=== PATIENT | female | born 1955 | race Caucasian/White ===

== ENCOUNTER → 2016-10-03 | Outpatient (CLI) | payer OTHER ==
[~2016-10-03] MED LIST: CA C1TAB26 PO; ESTR1TAB24 PO; MULT-608 PO; OMEG1CAP51 PO
--- OUTSIDE RECORDS SUMMARY | 2016-10-03 07:28 | XMS REPORT | Continuity of Care Document ---
Author Author [facility] Organization [facility] Address Unknown Phone Unavailable Allergies Active Description Code Type Severity Reaction Onset Reported/Identified Relationship to Patient Clinical Status Yes Penicillins [id number] Drug Allergy Unknown N/A 07/20/2010 Medications Problems Date Dx Coded Attending Type Code Diagnosis Diagnosed By 08/16/2014 Ot 793.89 08/16/2014 Ot V76.12 08/16/2014 Ot 610.0 08/16/2014 NEIDA GONZALES, CHRISTIANO Maradiaga Ot 719.42 08/16/2014 NEIDA GONZALES, CHRISTIANO R Ot V15.88 08/17/2014 Ot 793.89 08/17/2014 Ot V76.12 08/17/2014 Ot 610.0 08/17/2014 NEIDA GONZALES, CHRISTIANO R Ot 719.42 08/17/2014 NEIDA GONZALES, CHRISTIANO R Ot V15.88 08/17/2014 GERI CHACON DO Ot V76.12 09/15/2014 GERI CHACON DO Ot V76.12 01/21/2015 NEIDA GONZALES, CHRISTIANO R Ot 719.00 02/10/2015 RICHARD QUEZADA DC Ot 729.5 03/07/2015 RICHARD QUEZADA DC Ot 729.5 03/07/2015 ONEAL GONZALES, EFRAIN Batres Ot 375.15 03/07/2015 ONEAL GONZALES, EFRAIN Batres Ot 714.9 03/09/2015 ONEAL GONZALES, EFRAIN Batres Ot 375.15 03/09/2015 ONEAL GONZALES, EFRAIN Batres Ot 714.9 07/13/2016 RICHARD QUEZADA DC Ot 729.5 PAIN IN LIMB 07/13/2016 ONEAL GONZALES, EFRAIN Batres Ot 375.15 TEAR FILM INSUFFIC NOS 07/13/2016 ONEAL GONZALES, EFRAIN Batres Ot 714.9 INFLAMM POLYARTHROP NOS 07/16/2016 NEIDA GONZALES, CHRISTIANO Maradiaga Ot E78.00 PURE HYPERCHOLESTEROLEMIA, UNSPECIFIED 07/25/2016 CHRISTIANO CARRASQUILLO MD Ot E78.00 PURE HYPERCHOLESTEROLEMIA, UNSPECIFIED Procedures Results Test Result Range Lipid 1996 panel - 07/13/16 09:51 Serum or plasma triglyceride measurement (mass/volume) 208 mg/dL <150 Serum or plasma cholesterol measurement (mass/volume) 284 mg /dL < 200 Serum or plasma cholesterol in HDL measurement (mass/volume) 65 mg/dL 40-60 Cholesterol in LDL [mass/volume] in serum or plasma by direct assay 176 mg/dL 1-129 Serum or plasma cholesterol in VLDL measurement (mass/volume) 42 mg/dL 5-40 Encounters ACCT No. Visit Date/Time Discharge Status Pt. Type Provider Facility Loc./Unit Complaint [id number] 02/22/2015 08:52:00 2014 23:59:59 CLS Outpatient EFRAIN NO MD [facility] LAB DRY EYES [id number] 01/24/2015 09:49:00 2014 23:59:59 CLS Outpatient RICHARD QUEZADA DC [facility] RAD HAND PAIN [id number] 12/13/2014 09:52:00 2014 23:59:59 CLS Outpatient CHRISTIANO CARRASQUILLO MD [facility] LAB [id number] 08/16/2014 10:12:00 2014 23:59:59 CLS Outpatient GERI CHACON DO [facility] RAD [id number] 10/05/2013 13:44:00 2013 23:59:59 CLS Outpatient CHRISTIANO CARRASQUILLO MD [facility] RAD [id number] 09/25/2013 10:22:00 2013 23:59:59 CLS Outpatient [id number] 07/13/2016 09:40:00 ACT Outpatient CHRISTIANO CARRASQUILLO MD [facility] LAB ELEVATED CHOLESTEROL [id number] 10/03/2012 08:45:00 Document Registration [id number] 09/16/2012 10:47:00 Document Registration
--- NOTE | 2016-10-04 20:26 | Diagnostic Imaging Report ---
Bilateral screening mammogram The current study was also evaluated with a Computer Aided Detection (CAD) system. Indication: Screening. No current complaints stated on the questionnaire. COMPARISON: 08/16/2014. FINDINGS: The breasts are composed of heterogeneously dense parenchyma which may decrease mammographic sensitivity. There is no mass, architectural distortion or suspicious cluster of calcification. Allowing for technique and positional differences, no suspicious change is seen. IMPRESSION: No significant change. ACR BI-RADS Category 2: Benign findings. Result letter will be mailed to the patient. Note: At least 10% of breast cancer is not imaged by mammography. Dictated by: Dictated on workstation # [id number]
== END ==
LOC: RAD 07:25
PROVIDERS: ATTEND Obstetrics & Gynecology
DX: Z12.31 Encounter for screening mammogram for malignant neoplasm of breast (principal)
CPT/HCPCS: 77067

== ENCOUNTER 2018-09-12 05:46 | Outpatient (CLI) | payer OTHER ==
[~2018-09-12] VITALS: Ht 158.8 cm; Wt 71.2 kg
[2018-09-12] MEDS ORDERED: MULT1CAP27 PO (13:49)
[2018-09-12] MEDS ORDERED: MAGN500C15 PO (13:49)
[2018-09-12] MEDS ORDERED: TRIA1CAP4 PO (13:49)
[2018-09-12] MEDS ORDERED: LEVO50TA6 PO (13:49)
[2018-09-12] MEDS ORDERED: CHOL10007 PO (13:49)
[2018-09-12] MEDS ORDERED: OMEG1CAP58 PO (13:49)
[2018-09-12] MEDS ORDERED: LIOT5TAB3 PO (13:49)
[2018-09-12] MEDS ORDERED: VIT1CAPS9 PO (13:49)
[2018-09-12] MEDS ORDERED: MELO7.5T46 PO (13:49)
[2018-09-12] MEDS ORDERED: LEVO5TAB28 PO (13:49)
[2018-09-12] MEDS ORDERED: ESTR0.5T PO (13:49)
[2018-09-12] MEDS ORDERED: METF-397 PO (13:49)
[2018-09-12] MEDS ORDERED: VITA0.4T2 PO (13:49)
== END 2018-09-12 13:58 | disposition home or self-care (01) ==
LOC: PREOP 05:46
PROVIDERS: ATTEND Specialist
DX: Z01.818 Encounter for other preprocedural examination (principal)

== ENCOUNTER 2018-09-19 09:00 | Day surgery (SDC) | payer OTHER ==
[~2018-09-19] VITALS: Ht 158.8 cm; Wt 71.2 kg
[~2018-09-19 09:00] MED LIST changes: +CHOL10007 PO; +ESTR0.5T PO; +LEVO50TA6 PO; +LEVO5TAB28 PO; +LIOT5TAB3 PO; +MAGN500C15 PO; +MELO7.5T46 PO; +METF-397 PO; +MULT1CAP27 PO; +OMEG1CAP58 PO; +TRIA1CAP4 PO; +VIT1CAPS9 PO; +VITA0.4T2 PO
[2018-09-19 09:10] VITALS: BP 141/94
[2018-09-19] MEDS ORDERED: LIDOCAINE PF 1% 2 ML AMP IR PRN (09:15)
[2018-09-19] MEDS ORDERED: TIMOLOL MALEATE 0.5% 5 ML (TIMOPTIC) BTL OU PRN (09:15)
[2018-09-19] MEDS ORDERED: MOXIFLOXACIN OPHTH SOLN 5 MG/ML 0.3 ML SYRINGE OP ONE (09:15)
[2018-09-19] MEDS ORDERED: POVIDONE (BETADINE) OPHTH SOLN 5% 30 ML OP ONE (09:15)
[2018-09-19] MEDS: TETRACAINE 0.5% OPHTH SOLN 4 ML BTL (SINGLE DOSE ONLY) OU PRN ×4 (09:29→09:38)
[2018-09-19] MEDS ORDERED: MIDAZOLAM 2 MG/2 ML (VERSED) VIAL ONE (09:30)
[2018-09-19] MEDS: CYCLOPENTOLATE 1% (CYCLOGYL) 2 ML DROPS OP SCH ×3 (09:32→09:38)
[2018-09-19] MEDS: PHENYLEPHRINE 10% OPHTH (NEO-SYN) 5 ML BTL OU SCH ×3 (09:32→09:38)
--- NOTE | 2018-09-19 09:50 | Ophthalmologist Pre-Op Note ---
Pre-Operative Progress Note H&P Reviewed The H&P was reviewed, patient examined and no changes noted. Date H&P Reviewed: Sep 19, 2018 Time H&P Reviewed: 09:50 Pre-Op Dx Cataract, Right Eye NIDIA VALDEZ MD Sep 19, 2018 09:50
--- NOTE | 2018-09-19 10:14 | Ophthalmology Operative Report ---
Cataract removal/placement IOL PREOPERATIVE DIAGNOSIS: Cataract Right Eye POSTOPERATIVE DIAGNOSIS: Cataract Right Eye PROCEDURE: Cataract removal and placement of posterior chamber implant, right eye SURGEON: Rikki Valdez ANESTHESIA: Topical with sedation COMPLICATIONS: None ESTIMATED BLOOD LOSS: Minimal DESCRIPTION OF PROCEDURE: After proper informed consent was obtained, the patient, a 62 female, was taken to the Operating Room and the right eye was anesthetized with tetracaine. The right eye was then prepped and draped in the usual manner. A wire lid speculum was placed. A paracentesis was made at the left hand position. Preservative free lidocaine was injected into the anterior chamber followed by viscoelastic. A clear corneal incision was made in the temporal position. A capsulorrhexis was preformed and the central nuclear and cortical material were removed. The posterior capsule was polished and Bolivar 22.0 AU00T0 IOL was placed into the capsular bag. The residual viscoelastic was aspirated and balanced saline solution was injected into the anterior chamber. Moxifloxacin was injected into the anterior chamber. The wound was checked and found to be water tight. The patient tolerated the procedure well without complications. RIKKI VALDEZ MD Sep 19, 2018 10:14
[2018-09-19 10:30] VITALS: BP 132/76
--- OUTSIDE RECORDS SUMMARY | 2018-09-19 10:35 | XMS REPORT | Continuity of Care Document ---
Author Author [facility] Organization [facility] Address Unknown Phone Unavailable Allergies Active Description Code Type Severity Reaction Onset Reported/Identified Relationship to Patient Clinical Status Yes Penicillins [id number] Drug Allergy Unknown N/A 07/20/2010 Yes albuterol [id number] Drug Allergy Unknown N/A 09/12/2018 Yes budesonide [id number] Drug Allergy Unknown N/A 09/12/2018 Yes dapsone [id number] Drug Allergy Unknown N/A 09/12/2018 Yes formoterol [id number] Drug Allergy Unknown N/A 09/12/2018 Medications There is no data. Problems Date Dx Coded Attending Type Code Diagnosis Diagnosed By 08/16/2014 Ot 793.89 08/16/2014 Ot V76.12 08/16/2014 Ot 610.0 08/16/2014 NEIDA GONZALES, CHRISTIANO Maradiaga Ot 719.42 08/16/2014 NEIDA GONZALES, CHRISTIANO Maradiaga Ot V15.88 08/17/2014 Ot 793.89 08/17/2014 Ot V76.12 08/17/2014 Ot 610.0 08/17/2014 NEIDA GONZALES, CHRISTIANO Maradiaga Ot 719.42 08/17/2014 NEIDA GONZALES, CHRISTIANO Maradiaga Ot V15.88 08/17/2014 GERI CHACON DO Ot V76.12 09/15/2014 GERI CHACON DO Ot V76.12 01/21/2015 NEIDA GONZALES, CHRISTIANO Maradiaga Ot 719.00 02/10/2015 RICHARD QUEZADA DC Ot 729.5 03/07/2015 RICHARD QUEZADA DC Ot 729.5 03/07/2015 ONEAL GONZALES, EFRAIN Batres Ot 375.15 03/07/2015 ONEAL GONZALES, EFRAIN Batres Ot 714.9 03/09/2015 ONEAL GONZALES, EFRAIN Batres Ot 375.15 03/09/2015 ONEAL GONZALES, EFRAIN Batres Ot 714.9 07/13/2016 LONG DC, RICHARD S Ot 729.5 PAIN IN LIMB 07/13/2016 ONEAL GONZALES, EFRAIN Batres Ot 375.15 TEAR FILM INSUFFIC NOS 07/13/2016 ONEAL GONZALES, EFRAIN Batres Ot 714.9 INFLAMM POLYARTHROP NOS 07/16/2016 NEIDA GONZALES, CHRISTIANO Maradiaga Ot E78.00 PURE HYPERCHOLESTEROLEMIA, UNSPECIFIED 07/25/2016 CHRISTIANO CARRASQUILLO MD Ot E78.00 PURE HYPERCHOLESTEROLEMIA, UNSPECIFIED 10/04/2016 GERI CHACON DO Ot Z12.31 ENCNTR SCREEN MAMMOGRAM FOR MALIGNANT NE 10/04/2016 GERI CHACON DO Ot Z12.31 ENCNTR SCREEN MAMMOGRAM FOR MALIGNANT NE 10/15/2016 GERI CHACON DO Ot Z12.31 ENCNTR SCREEN MAMMOGRAM FOR MALIGNANT NE 09/12/2018 NIDIA VALDEZ MD Ot Z01.818 ENCOUNTER FOR OTHER PREPROCEDURAL EXAMIN 09/17/2018 GERI CHACON DO Ot Z12.31 ENCNTR SCREEN MAMMOGRAM FOR MALIGNANT NE Procedures There is no data. Results Test Result Range Lipid 1996 panel - 07/13/16 09:51 Serum or plasma triglyceride measurement (mass/volume) 208 mg/dL <150 Serum or plasma cholesterol measurement (mass/volume) 284 mg/dL < 200 Serum or plasma cholesterol in HDL measurement (mass/volume) 65 mg/ dL 40-60 Cholesterol in LDL [mass/volume] in serum or plasma by direct assay 176 mg/dL 1-129 Serum or plasma cholesterol in VLDL measurement (mass/volume) 42 mg/ dL 5-40 Encounters ACCT No. Visit Date/Time Discharge Status Pt. Type Provider Facility Loc./Unit Complaint [id number] 09/12/2018 05:46:00 09/12/2018 13:58:00 DIS Outpatient NIDIA VALDEZ MD [facility] PREOP RIGHT CATARACT [id number] 10/03/2016 07:25:00 10/03/2016 23:59:59 CLS Outpatient GERI CHACON DO [facility] RAD BREAST CANCER SCREENING [id number] 07/13/2016 09:40:00 07/13/2016 23:59:59 CLS Outpatient CHRISTIANO CARRASQUILLO MD [facility] LAB ELEVATED CHOLESTEROL [id number] 02/22/2015 08:52:00 02/22/2015 23:59:59 CLS Outpatient EFRAIN NO MD [facility] LAB DRY EYES [id number] 01/24/2015 09:49:00 01/24/2015 23:59:59 CLS Outpatient RICHARD QUEZADA DC [facility] RAD HAND PAIN [id number] 12/13/2014 09:52:00 12/13/2014 23:59:59 CLS Outpatient CHRISTIANO CARRASQUILLO MD [facility] LAB [id number] 08/16/2014 10:12:00 08/16/2014 23:59:59 CLS Outpatient GERI CHACON DO [facility] RAD [id number] 10/05/2013 13:44:00 10/05/2013 23:59:59 CLS Outpatient CHRISTIANO CARRASQUILLO MD [facility] RAD [id number] 09/25/2013 10:22:00 09/25/2013 23:59:59 CLS Outpatient [id number] 09/19/2018 10:30:00 NIDIA Russ MD [facility] CATARACT RIGHT EYE [id number] 10/03/2012 08:45:00 Document Registration [id number] 09/16/2012 10:47:00 Document Registration [id number] 02/22/2015 08:54:26 ACT Document Registration [id number] 09/09/2018 10:00:00 09/09/2018 23:59:59 CLS Outpatient MAURICIO MOSLEY DO [facility]
[2018-09-19] MEDS ORDERED: acetaZOLAMIDE ER 500 MG CAP (DIAMOX SEQUELS) PO ONE (11:00)
--- NOTE | 2018-09-19 13:13 | Anesthesia-General Post-Op ---
MAC Patient Condition Mental Status/LOC: Same as Preop Cardiovascular: Satisfactory Nausea/Vomiting: Absent Respiratory: Satisfactory Pain: Controlled Complications: Absent Post Op Complications Complications None Follow Up Care/Instructions Patient Instructions None needed. Anesthesiology Discharge Order Discharge Order Patient is doing well, no complaints, stable vital signs, no apparent adverse anesthesia problems. No complications reported per nursing. ALVARO CHRISTOPHER CRNA Sep 19, 2018 13:13
== END 2018-09-19 10:30 | disposition home or self-care (01) ==
LOC: SDC 09:00
PROVIDERS: ATTEND Specialist
DX: H25.11 Age-related nuclear cataract, right eye (principal); E11.36 Type 2 diabetes mellitus with diabetic cataract; E78.00 Pure hypercholesterolemia, unspecified; Z79.84 Long term (current) use of oral hypoglycemic drugs; Z79.899 Other long term (current) drug therapy
CPT/HCPCS: 82962

== ENCOUNTER 2018-10-06 06:17 | Outpatient (CLI) | payer OTHER ==
[~2018-10-06] VITALS: Ht 158.8 cm; Wt 71.2 kg
[~2018-10-06 06:17] MED LIST changes: +OCUVITE SOFTGE1 EACH PO; -VIT1CAPS9 PO
== END 2018-10-08 14:14 | disposition home or self-care (01) ==
LOC: PREOP 06:17
PROVIDERS: ATTEND Specialist
DX: Z01.818 Encounter for other preprocedural examination (principal)

== ENCOUNTER 2018-10-10 09:31 | Day surgery (SDC) | payer OTHER ==
[~2018-10-10] VITALS: Ht 158.8 cm; Wt 71.2 kg
[2018-10-10] MEDS ORDERED: POVIDONE (BETADINE) OPHTH SOLN 5% 30 ML OP ONE (09:45)
[2018-10-10] MEDS ORDERED: LIDOCAINE PF 1% 2 ML AMP IR PRN (09:45)
[2018-10-10] MEDS ORDERED: MOXIFLOXACIN OPHTH SOLN 5 MG/ML 0.3 ML SYRINGE OP ONE (09:45)
[2018-10-10] MEDS ORDERED: TIMOLOL MALEATE 0.5% 5 ML (TIMOPTIC) BTL OU PRN (09:45)
[2018-10-10] MEDS: TETRACAINE 0.5% OPHTH SOLN 4 ML BTL (SINGLE DOSE ONLY) OU PRN ×4 (09:46→10:03)
[2018-10-10 09:53] VITALS: BP 139/77
[2018-10-10] MEDS: PHENYLEPHRINE 10% OPHTH (NEO-SYN) 5 ML BTL OU SCH ×3 (09:53→10:03)
[2018-10-10] MEDS: CYCLOPENTOLATE 1% (CYCLOGYL) 2 ML DROPS OP SCH ×3 (09:53→10:03)
--- NOTE | 2018-10-10 10:14 | Ophthalmologist Pre-Op Note ---
Pre-Operative Progress Note H&P Reviewed The H&P was reviewed, patient examined and no changes noted. Date H&P Reviewed: Oct 10, 2018 Time H&P Reviewed: 10:14 Pre-Op Dx Cataract, Left Eye NIDIA VALDEZ MD Oct 10, 2018 10:14
[2018-10-10] MEDS ORDERED: MIDAZOLAM 2 MG/2 ML (VERSED) VIAL ONE (10:19)
--- NOTE | 2018-10-10 10:37 | Ophthalmology Operative Report ---
Cataract removal/placement IOL PREOPERATIVE DIAGNOSIS: Cataract Left Eye POSTOPERATIVE DIAGNOSIS: Cataract Left Eye PROCEDURE: Cataract removal and placement of posterior chamber implant, left eye SURGEON: Rikki Valdez ANESTHESIA: Topical with sedation COMPLICATIONS: None ESTIMATED BLOOD LOSS: Minimal DESCRIPTION OF PROCEDURE: After proper informed consent was obtained, the patient, a 62 female, was taken to the Operating Room and the left eye was anesthetized with tetracaine. The left eye was then prepped and draped in the usual manner. A wire lid speculum was placed. A paracentesis was made at the left hand position. Preservative free lidocaine was injected into the anterior chamber followed by viscoelastic. A clear corneal incision was made in the temporal position. A capsulorrhexis was preformed and the central nuclear and cortical material were removed. The posterior capsule was polished and an Bolivar 21.5 AU00T0 was placed into the capsular bag. The residual viscoelastic was aspirated and balanced saline solution was injected into the anterior chamber. Moxifloxacin was injected into the anterior chamber. The wound was checked and found to be water tight. The patient tolerated the procedure well without complications. RIKKI VALDEZ MD Oct 10, 2018 10:37
[2018-10-10 10:45] VITALS: BP 139/83
[2018-10-10] MEDS ORDERED: acetaZOLAMIDE ER 500 MG CAP (DIAMOX SEQUELS) PO ONE (11:00)
--- NOTE | 2018-10-10 11:00 | Anesthesia-General Post-Op ---
MAC Patient Condition Mental Status/LOC: Same as Preop Cardiovascular: Satisfactory Nausea/Vomiting: Absent Respiratory: Satisfactory Pain: Controlled Complications: Absent Post Op Complications Complications None Follow Up Care/Instructions Patient Instructions None needed. Anesthesiology Discharge Order Discharge Order Patient is doing well, no complaints, stable vital signs, no apparent adverse anesthesia problems. No complications reported per nursing. ONEIL GUAMAN CRNA Oct 10, 2018 11:00
== END 2018-10-10 10:55 | disposition home or self-care (01) ==
LOC: SDC 09:31
PROVIDERS: ATTEND Specialist
DX: H25.12 Age-related nuclear cataract, left eye (principal); E11.36 Type 2 diabetes mellitus with diabetic cataract; E78.00 Pure hypercholesterolemia, unspecified; Z79.84 Long term (current) use of oral hypoglycemic drugs; Z79.899 Other long term (current) drug therapy
CPT/HCPCS: 82962

== ENCOUNTER → 2020-12-28 | Outpatient (CLI) | payer OTHER ==
[~2020-12-28] MED LIST changes: +LIOT5TAB10 PO; -LIOT5TAB3 PO
[2020-12-28 13:58] LABS: BASOPHILS # (AUTO) 0.1 10^3/uL (0.0-0.1); BASOPHILS % (AUTO) 1 % (0-10); EOSINOPHILS # (AUTO) 0.7 10^3/uL (0.0-0.3); EOSINOPHILS % (AUTO) 11 % (0-10); HEMATOCRIT 36 % (35-52); HEMOGLOBIN 11.9 g/dL (11.5-16.0); LYMPHOCYTES # (AUTO) 1.5 10^3/uL (1.0-4.0); LYMPHOCYTES % (AUTO) 24 % (12-44); MEAN CORPUSCULAR HEMOGLOBIN 33 pg (25-34); MEAN CORPUSCULAR HGB CONC 33 g/dL (32-36); MEAN CORPUSCULAR VOLUME 98 fL (80-99); MEAN PLATELET VOLUME 10.9 fL (9.0-12.2); MONOCYTES # (AUTO) 0.5 10^3/uL (0.0-1.0); MONOCYTES % (AUTO) 7 % (0-12); NEUTROPHILS # (AUTO) 3.6 10^3/uL (1.8-7.8); NEUTROPHILS % (AUTO) 57 % (42-75); PLATELET COUNT 272 10^3/uL (130-400); WHITE BLOOD COUNT 6.4 10^3/uL (4.3-11.0)
[2020-12-28 14:24] LABS: ALANINE AMINOTRANSFERASE 64 U/L (0-55); ALKALINE PHOSPHATASE 84 U/L (40-136); BILIRUBIN,TOTAL 0.4 MG/DL (0.1-1.0); BUN/CREATININE RATIO 13; CARBON DIOXIDE 28 MMOL/L (21-32); CHLORIDE 104 MMOL/L (98-107); CREATININE SERUM 0.83 MG/DL (0.60-1.30); GFR ESTIMATED > 60; GLUCOSE 87 MG/DL (70-105); POTASSIUM 3.8 MMOL/L (3.6-5.0); SODIUM 139 MMOL/L (135-145); TOTAL PROTEIN 7.1 GM/DL (6.4-8.2)
--- NOTE | 2020-12-28 15:13 | Diagnostic Imaging Report ---
INDICATION: Bilateral axillary adenopathy. FINDINGS: Sonographic interrogation of the right and left axilla was performed. No masses or enlarged lymph nodes in the right axilla are identified. The left axilla demonstrates a 2.4 x 0.4 x 1.2 cm lymph node which demonstrates a fatty hilum. This is in the region of the axillary tail. No other masses are seen. IMPRESSION: There is a mildly prominent lymph node in the left axillary tail. The study is otherwise unremarkable. Dictated by: Dictated on workstation # [id number]
--- NOTE | 2020-12-28 15:20 | Diagnostic Imaging Report ---
PROCEDURE: US Abdomen, limited. TECHNIQUE: Multiple Real-time grayscale images were obtained over the abdomen in various projections. INDICATION: Right upper quadrant pain. FINDINGS: The liver is normal in size at approximately 15 cm. No discrete liver mass is detected. The portal vein is patent and shows normal direction of flow. The gallbladder is without stones or sludge. No wall thickening or biliary ductal dilatation is seen. The pancreas is unremarkable. The aorta is nonaneurysmal. The IVC is patent. The right kidney is without calculus or hydronephrosis. There is no ascites. IMPRESSION: Unremarkable right upper quadrant ultrasound. Dictated by: Dictated on workstation # [id number]
== END ==
LOC: RAD 13:42
PROVIDERS: ATTEND Nurse Practitioner Family
DX: R59.0 Localized enlarged lymph nodes (principal); R10.11 Right upper quadrant pain
CPT/HCPCS: 36415; 76642; 76705; 80053; 85025; 86141

== ENCOUNTER → 2021-01-06 | Outpatient (CLI) | payer OTHER ==
--- NOTE | 2021-01-10 10:37 | Diagnostic Imaging Report ---
Digital mammogram INDICATION: Bilateral screening This study was compared to the prior exams of 10/03/2016 and 08/16/2014. At this time there are no current complaints. The current study was also evaluated with a Computer Aided Detection (CAD) system. FINDINGS: The fibroglandular tissue in both breasts is heterogeneously dense. This does limit the sensitivity of this exam. Overall, there does not appear to have been any significant change when compared to the prior study. No primary or secondary sign of malignancy is noted. IMPRESSION: 1. There is no radiographic evidence for malignancy. 2. The patient should have her annual bilateral screening mammogram on schedule in January 2022. ACR category 1 ACR BI-RADS Category 1: Negative. Result letter will be mailed to the patient. Note: At least 10% of breast cancer is not imaged by mammography. Dictated on workstation # [id number]
== END ==
LOC: RAD 14:46
PROVIDERS: ATTEND Nurse Practitioner Family
DX: Z12.31 Encounter for screening mammogram for malignant neoplasm of breast (principal)
CPT/HCPCS: 77063; 77067

== ENCOUNTER 2021-04-13 05:40 | Outpatient (CLI) | payer OTHER ==
[~2021-04-13] VITALS: Ht 157.5 cm; Wt 79.5 kg
[2021-04-14] MEDS ORDERED: FLUT9.9S NS (13:27)
== END 2021-04-14 14:00 ==
LOC: PREOP 05:40
PROVIDERS: ATTEND Internal Medicine
DX: Z01.818 Encounter for other preprocedural examination (principal)

== ENCOUNTER 2021-04-21 08:20 | Day surgery (SDC) | payer OTHER ==
--- NOTE | 2021-04-12 19:21 | HISTORY AND PHYSICAL ---
DATE OF SERVICE: COLONOSCOPY HISTORY AND PHYSICAL DATE OF ADMISSION: . HISTORY OF PRESENT ILLNESS: The patient is a 65-year-old white female referred by, I believe, YASMIN Lopez in Dr. Silva's office for her first screening colonoscopy. She reports she has finally gotten over her anxieties about the procedure to undergo, but did have a lot of questions about the rationale for screening colonoscopy and potential complications, which were discussed. She is deemed to be of average risk as she is not aware of any family history for colon cancer. Denies any abdominal pain, change in bowel habits, bright red blood per rectum or melena. She denies any change in weight. 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 She has no known history of coronary artery disease. PAST SURGICAL HISTORY: She had a total abdominal hysterectomy 30 years ago for benign reasons and has had right arthroscopic knee surgery and wisdom tooth extraction as well as foot surgery for reported benign cyst as I recall. SOCIAL HISTORY: She works at [employer] with no past smoking history and only rare alcohol consumption. FAMILY HISTORY: She is not aware of any family history for GI tract malignancy. REVIEW OF SYSTEMS: CONSTITUTIONAL: Denies change in weight, night sweats, chills, fever and is fully vaccinated for COVID. GASTROINTESTINAL: As noted in the HPI. CARDIOVASCULAR: Denies chest pain, shortness of breath, orthopnea, PND, pedal edema, syncope or presyncope. PULMONARY: Denies cough, wheezing or shortness of breath. PHYSICAL EXAMINATION: GENERAL: Reveals a pleasant white female, a little anxious, but in no acute distress. VITAL SIGNS: Blood pressure 128/80 and weight is 179 pounds. HEENT: Unremarkable. Sclerae nonicteric. CHEST: Clear. CARDIOVASCULAR: Revealed a regular rate and rhythm without murmur, S3 or S4. ABDOMEN: Soft, supple without mass, organomegaly or tenderness. EXTREMITIES: Reveal no cyanosis, clubbing or edema. ASSESSMENT AND PLAN: The patient is being set up for her first screening colonoscopy. Rationale was discussed. Discussed risk of bleeding if polypectomy was performed and the importance of remaining off of aspirin and nonsteroidal medication that she normally does not take. I also discussed perforation that could require surgery, most commonly occurring around polypectomy as well, but in my hands rated being extremely low, less than one in 5000. She is willing to proceed with colonoscopy and she is being set up later this month. In addition, her electronic medical record was reviewed. I thank you for the referral of this pleasant lady. Job ID: [id number] DocumentID: [id number] Dictated Date: 04/05/2021 16:09:49 Sales Rep Date: 04/05/2021 16:57:46 Dictated By: LOVE HILL MD
[~2021-04-21] VITALS: Ht 157.5 cm; Wt 79.5 kg
[~2021-04-21 08:20] MED LIST changes: +FLUT9.9S NS
[2021-04-21] MEDS ORDERED: LACTATED RINGERS 1,000 ML IV ONE (08:30)
[2021-04-21] MEDS ORDERED: LACTATED RINGERS 1,000 ML IV STA (08:30)
[2021-04-21] MEDS ORDERED: LIDOCAINE JELLY 2% 6 ML SYRINGE MM PRN (08:30)
[2021-04-21 08:43] VITALS: BP 135/81
[2021-04-21] MEDS ORDERED: MIDAZOLAM 2 MG/2 ML (VERSED) VIAL ONE (09:55)
[2021-04-21] MEDS ORDERED: PROPOFOL INJECTION 50 ML IV ONE ×2 (09:55→10:17)
[2021-04-21 10:40] VITALS: BP 153/72
[2021-04-21 10:45] VITALS: BP 164/77
--- NOTE | 2021-04-21 10:47 | Pre-Op Note & Conscious Sedat ---
Pre-Operative Progress Note H&P Reviewed The H&P was reviewed, patient examined and no changes noted. Date H&P Reviewed: Apr 21, 2021 Time H&P Reviewed: 09:15 Conscious Sedation Pre-Proced ASA Score 2 For ASA 3 and 4: Consider anesthesia and medical clearance. Also, for patients with a history of failed moderate sedation consider anesthesia. Airway Lungs Heart ASA score ASA 1: a normal healthy patient ASA 2: a patient with a mild systemic disease (mid diabetes, controlled hypertension, obesity ASA 3: a patient with a severe systemic disease that limits activity (angina, COPD, prior Myocardial infarction) ASA 4: a patient with an incapacitating disease that is a constant threat to life (CHF, renal failure) ASA 5: a moribund patient not expected to survive 24 hrs. (ruptured aneurysm) ASA 6: a declared brain- patient whose organs are being harvested. For emergent operations, add the letter E after the classification Mallampati Classification Grade 2 Sedation Plan Analgesia, Amnesia, Plan communicated to team members, Discussed options with patient/fam, Discussed risks with patient/fam The patient is an appropriate candidate to undergo the planned procedure, sedation, and anesthesia. The patient immediately re-assessed prior to indication. LOVE HILL MD Apr 21, 2021 10:47
[2021-04-21 10:50] VITALS: BP 148/68
[2021-04-21 10:55] VITALS: BP 148/68
[2021-04-21 11:20] VITALS: BP 137/77
--- NOTE | 2021-04-21 13:48 | Anesthesia-General Post-Op ---
MAC Patient Condition Mental Status/LOC: Same as Preop Cardiovascular: Satisfactory Nausea/Vomiting: Absent Respiratory: Satisfactory Pain: Controlled Complications: Absent Post Op Complications Complications None Follow Up Care/Instructions Patient Instructions None needed. Anesthesiology Discharge Order Discharge Order Patient is doing well, no complaints, stable vital signs, no apparent adverse anesthesia problems. No complications reported per nursing. SRINIVAS VEE CRNA Apr 21, 2021 13:48
--- NOTE | 2021-04-21 14:46 | OPERATIVE REPORT ---
DATE OF SERVICE: COLONOSCOPY SUMMARY INDICATION FOR THE PROCEDURE: Screening colonoscopy. DESCRIPTION OF PROCEDURE: The patient was placed in the left lateral decubitus position. Prior to undergoing colonoscopy, digital rectal evaluation was performed. Anal sphincter tone was normal. Perianal reflexes intact. No abnormalities were noted on digital inspection of anal canal or distal rectal vault. Colonoscope was inserted in the rectum and under direct visualization advanced to cecum. The cecum was identified by identification of ileocecal valve and cecal strap. Photographic documentation was obtained. Quality of prep was good. FINDINGS: There was no evidence for internal or external hemorrhoids. Present in the distal rectum was a diminutive hyperplastic-appearing polyp was removed in its entirety. Several small sigmoid diverticulum were present with no other sigmoid colonic abnormalities being appreciated. The descending colon, splenic flexure, transverse colon, hepatic flexure, ascending colon and cecum were unremarkable. ASSESSMENT: 1. Mild diverticular disease confined to the sigmoid colon was present without evidence for diverticulitis. 2. One diminutive hyperplastic-appearing polyp was removed from the distal rectum. As long as there continues to be no family history for colon cancer, we would advocate consideration for repeat screening colonoscopy in 10 years. I thank you for the referral of this pleasant lady. CC: Yasmin Desai KILN BURNER HELPER - requested, unable to deliver. Job ID: [id number] DocumentID: [id number] Dictated Date: 04/21/2021 10:52:29 Shank Cutter Date: 04/21/2021 14:45:29 Dictated By: LOVE HILL MD
== END 2021-04-21 12:15 | disposition home or self-care (01) ==
LOC: ENDO 08:20
PROVIDERS: ATTEND Internal Medicine
DX: Z12.11 Encounter for screening for malignant neoplasm of colon (principal); K62.1 Rectal polyp; K57.30 Diverticulosis of large intestine without perforation or abscess without bleeding; I10 Essential (primary) hypertension; F41.9 Anxiety disorder, unspecified; E88.81 Metabolic syndrome and other insulin resistance; E89.0 Postprocedural hypothyroidism; Z79.890 Hormone replacement therapy; Z79.84 Long term (current) use of oral hypoglycemic drugs; Z79.899 Other long term (current) drug therapy; Z88.0 Allergy status to penicillin; Z88.8 Allergy status to other drugs, medicaments and biological substances

== ENCOUNTER → 2022-04-04 | Outpatient (CLI) | payer OTHER ==
[~2022-04-04] MED LIST changes: -TRIA1CAP4 PO; +TRIA1CAP84 PO
--- NOTE | 2022-04-04 14:22 | Diagnostic Imaging Report ---
INDICATION: Rib pain. COMPARISON: None FINDINGS: Three views of the right ribs were obtained. There is no fracture, dislocation, or other acute bony abnormality identified. Visualized portions of the right lung are clear. The surrounding soft tissues appear unremarkable. No radiopaque foreign bodies are seen. IMPRESSION: No healing or displaced right-sided rib fractures. Dictated by: Dictated on workstation # [id number]
== END ==
LOC: RAD 13:40
PROVIDERS: ATTEND Nurse Practitioner Family
DX: R07.81 Pleurodynia (principal)
CPT/HCPCS: 71100

== ENCOUNTER 2022-11-12 09:17 | Emergency (ER) | payer OTHER ==
[2022-11-12 09:29] VITALS: BP 158/87
--- NOTE | 2022-11-12 09:48 | ED Fall/Injury ---
General Chief Complaint: Trauma-Non Activation Stated Complaint: FALL Nursing Triage Note: Patient has presented to ER with cc of a fall at work. She was carring boxes through a door - and she hit the edge of the door and lost her balance and fell backwards. She complains of sore on her right cheek, right hand, right knee, and her postior ribs are sore. Source: patient, EMS Exam Limitations: no limitations History of Present Illness Date Seen by Provider: Nov 12, 2022 Time Seen by Provider: 09:20 Initial Comments This 67-year-old woman presents to the emergency room with injuries related to a fall at work. She was carrying items into the office and tripped on the curb. She believes she bumped her right cheek on the door frame and then fell to the ground. She complains of pain on the right posterior chest, right knee, and right hand. She has bruising on the toes of the right foot as well but that was from an old injury last week and those toes are not painful. There was no loss of consciousness. Patient believes all of her injuries are minor except for po ssibly the right knee. She denies any symptoms of concussion. She has no neck pain or tenderness. There is no increased pain in the chest wall with movement or breathing. She is ambulatory but notes significant pain in the right knee. Allergies and Home Medications Allergies Coded Allergies: Penicillins (Unverified Allergy, Unknown, 07/20/10) albuterol (Verified Allergy, Unknown, 09/12/18) budesonide (Verified Allergy, Unknown, 09/12/18) dapsone (Verified Allergy, Unknown, 09/12/18) formoterol (Verified Allergy, Unknown, 09/12/18) Patient Home Medication List Home Medication List Reviewed: Yes Cholecalciferol (Vitamin D3) (Vitamin D3) 1,000 Unit Capsule, 1,000 UNIT PO DAILY, (Reported) Entered as Reported by: ANJALI KRUGER on 09/12/18 1349 Estradiol (Estradiol Tablet) 0.5 Mg Tablet, 0.5 MG PO DAILY, (Reported) Entered as Reported by: ANJALI KRUGER on 09/12/18 1349 Fluticasone Propionate (Flonase Allergy Relief) 9.9 Ml [place].susp, 1 SPRAY NS DAILY, (Reported) Entered as Reported by: DALE MARADIAGA on 04/14/21 1327 Levothyroxine Sodium (Levothyroxine Sodium) 50 Mcg Tablet, 50 MCG PO DAILY, (Reported) Entered as Reported by: ANJALI KRUGER on 09/12/18 134 Liothyronine Sodium (Liothyronine Sodium) 5 Mcg Tablet, 5 MCG PO DAILY, (R eported) Entered as Reported by: ANJALI KRUGER on 09/12/18 134 Magnesium Oxide (Magnesium) 500 Mg Capsule, 500 MG PO DAILY, (Reported) Entered as Reported by: ANJALI KRUGER on 09/12/18 134 Metformin HCl (Metformin HCl) 500 Mg Tablet, 500 MG PO DAILY, (Reported) Entered as Reported by: ANJALI KRUGER on 09/12/18 134 Multivitamin (Multivitamins) 1 Each Capsule, 1 EACH PO DAILY, (Reported) Entered as Reported by: ANJALI KRUGER on 09/12/18 134 [place]-3 Fatty Acids/Fish Oil ([place] 3 1,000 mg Softgel) 1 Each Capsule, 1 EACH PO DAILY, (Reported) Entered as Reported by: ANJALI KRUGER on 09/12/18 134 Triamterene/Hydrochlorothiazid (Triamterene-Hctz 37.5-25 mg Cp) 1 Each Capsule, 1 EACH PO DAILY, (Reported) Entered as Reported by: ANJALI KRUGER on 09/12/18 134 Vit C/Vit E/Lutein/Min/[place]-3 (Ocuvite Softgel) 1 Each Capsule, 1 EACH PO DAILY, (Reported) Entered as Reported by: ANJALI KRUGER on 09/12/18 134 Vitamin B Complex/Folic Acid (B-Complex Tablet) 0.4 Mg Tablet, 0.4 MG PO DAILY, (Reported) Entered as Reported by: ANJALI KRUGER on 09/12/18 134 Review of Systems Review of Systems Constitutional: no symptoms reported Eyes: No Symptoms Reported Ears, Nose, Mouth, Throat: see HPI Respiratory: no symptoms reported Cardiovascular: no symptoms reported Gastrointestinal: no symptoms reported Genitourinary: no symptoms reported Musculoskeletal: see HPI Skin: see HPI Psychiatric/Neurological: No Symptoms Reported Past Diaehed-Pkuffq-Lnnbau Hx Patient Social History Tobacco Use?: No Use of E-Cig and/or Vaping dev: No Substance use?: No Alcohol Use?: No Immunizations Up To Date First/Initial COVID19 Vaccinat: 09/2020 Second COVID19 Vaccination Jan: 10/2020 Seasonal Allergies Seasonal Allergies: No Past Medical History Surgeries: Yes ([place] teeth) Eye Surgery, Hysterectomy, Orthopedic (Left patella, cyst on foot) Respiratory: No Cardiac: Yes High Cholesterol Neurological: No Reproductive Disorders: Yes (ENDOMETRIOSIS) Sexually Transmitted Disease: No Genitourinary: No Gastrointestinal: Yes (COLITIS 10 YRS AGO) Musculoskeletal: Yes (ARTHRITIS) Endocrine: No HEENT: No Cancer: No Psychosocial: Yes Anxiety, Depression Integumentary: No Blood Disorders: No Physical Exam Vital Signs Vital Signs - First Documented 11/12/22 09:29 Temp 36.3 Pulse 70 Resp 18 B/P (MAP) 158/87 (110) Pulse Ox 98 O2 Delivery Room Air Capillary Refill : Height, Weight, BMI Height: 5'2.50" Weight: 157lbs. 0.0oz. 71.908722dm; BMI Method: General Appearance: WD/WN, no apparent distress HEENT: PERRL/EOMI, normal ENT inspection, other (Minimal tenderness at the right cheek with no significant injury appreciated on exam) Neck: non-tender, normal inspection Cardiovascular: regular rate, rhythm, no edema, no murmur Respiratory: lungs clear, normal breath sounds, no respiratory distress, other (No significant tenderness on the chest wall) Gastrointestinal: normal bowel sounds, non tender, soft Extremities: other (Abrasion, contusion, and swelling to the anterior portions of the right knee. Pain with passive and active range of motion in the right knee. Distal exam is unremarkable. Right hand has minimal tenderness with no decreased range of motion. There is subtle bruising to the mid hand and right mid finger) Neurologic/Psychiatric: no motor/sensory deficits, alert, normal mood/affect, oriented x 3 Skin: warm/dry, ecchymosis Natasha Coma Score Best Eye Response: (4) Open Spontaneously Best Verbal Response: (5) Oriented Best Motor Response: (6) Obeys Commands Natasha Total: 15 Progress/Results/Core Measures Results/Orders My Orders Orders - NORMA MORSE MD Knee, Right, 3 Views (11/12/22 09:32) Vital Signs/I&O 11/12/22 09:29 Temp 36.3 Pulse 70 Resp 18 B/P (MAP) 158/87 (110) Pulse Ox 98 O2 Delivery Room Air Blood Pressure Mean: 110 Progress Progress Note : Progress Note After discussing her exam, patient and I agree that the right knee should be imaged. No other injuries appear to require imaging at this time. X-rays of the right knee were obtained. Report was reviewed. No significant injuries were noted on x-ray. Discharge instructions were reviewed with patient. Occupational health paperwork was completed. Diagnostic Imaging Diagonstic Imaging: CT Plain Films/CT/US/NM/MRI: knee (Right knee) Comments NAME: GREGG COATES [facility] REC#: [id number] PT STATUS: DEP ER : 1955 PHYSICIAN: NORMA MORSE MD ADMIT DATE: 11/12/22/ER Signed Date of Exam:11/12/22 KNEE, RIGHT, 3 VIEWS INDICATION: Right knee pain 3 views of the right knee show no fracture, dislocation or other acute abnormalities. IMPRESSION: Negative right knee Dictated by: Dictated on workstation # [id number] Dict: 11/12/2259 Trans: 11/12/22 1158 CV [id number] Interpreted by: LINDA SINGH MD Electronically signed by: LINDA SINGH MD 11/12/22 1158 Departure Impression Primary Impression: Fall on same level Qualified Codes: W18.30XA - Fall on same level, unspecified, initial encounter Additional Impressions: Multiple contusions Right knee pain Qualified Codes: M25.561 - Pain in right knee Disposition: 01 HOME, SELF-CARE Condition: Stable Departure-Patient Inst. Decision time for Depature: 10:28 Referrals: ALESSANDRO JOHANSEN MD (PCP) Primary Care Physician LITZY LEE APRN (Family) Primary Care Physician Patient Instructions: Minor Contusion ED Add. Discharge Instructions: Gradually increase level of activity as pain allows. You may ice injured and bruised areas in 20-minute intervals over the next couple days to help reduce pain and swelling. You may use Tylenol (acetaminophen) up to 1000 mg every 6 hours as needed and/or ibuprofen up to 600 mg every 6 hours as needed for pain. Return to care if you have worsening symptoms despite following these instructions. All discharge instructions reviewed with patient and/or family. Voiced understanding. Copy Copies To 1: ALESSANDRO JOHANSEN MD, JOSHUA T MD Nov 12, 2022 09:48
--- NOTE | 2022-11-12 10:04 | Diagnostic Imaging Report ---
INDICATION: Right knee pain 3 views of the right knee show no fracture, dislocation or other acute abnormalities. IMPRESSION: Negative right knee Dictated by: Dictated on workstation # [id number]
== END 2022-11-12 10:45 | disposition home or self-care (01) ==
LOC: EDUNIT# 09:17 → ER 09:19
DX: S80.01XA Contusion of right knee, initial encounter (principal); S60.221A Contusion of right hand, initial encounter; S00.83XA Contusion of other part of head, initial encounter; S20.219A Contusion of unspecified front wall of thorax, initial encounter; W01.198A Fall on same level from slipping, tripping and stumbling with subsequent striking against other object, initial encounter; Y92.59 Other trade areas as the place of occurrence of the external cause; Y99.0 Civilian activity done for income or pay
CPT/HCPCS: 73562

== ENCOUNTER 2022-11-12 15:30 | Emergency (ER) | payer OTHER ==
--- NOTE | 2022-11-12 15:59 | Diagnostic Imaging Report ---
INDICATION: Right middle finger injury Three views of the right middle finger show osteoarthritic changes with large osteophytes forming at the PIP and DIP joints. There is no appreciable fracture or dislocation. IMPRESSION: Osteoarthritic changes of the right middle finger. No acute abnormality is seen. Dictated by: Dictated on workstation # [id number]
[2022-11-12 16:02] VITALS: BP 162/79
--- NOTE | 2022-11-12 16:28 | ED Fall/Injury ---
General Chief Complaint: Upper Extremity Stated Complaint: RIGHT MIDDLE FINGER Nursing Triage Note: Patient has presented to ER with cc of ongoing right middle finger pain. She fell at work earlier this morning. She was seen in the ER this morning - but after getting home the finger/hand pain was getting worse. She was getting more swelling in her right middle finger. She returned to ER for evaluation of her finger. Source: patient Exam Limitations: no limitations History of Present Illness Date Seen by Provider: Nov 12, 2022 Time Seen by Provider: 15:37 Initial Comments This 67-year-old woman presents to the emergency room as a repeat visit today for pain, swelling, and decreased range of motion in the right middle finger after having a fall at work. She was evaluated earlier in the day. The injury to the right hand seemed minor at that time and did not appear to require imaging. The right knee was imaged and found to have no bony injuries by x- rays. Patient complains that the right middle finger has become progressively ecchymotic, swollen, painful, and stiff despite icing and taking [id number] pain medication. She would now like it reassessed. Allergies and Home Medications Allergies Coded Allergies: Penicillins (Unverified Allergy, Unknown, 07/20/10) albuterol (Verified Allergy, Unknown, 09/12/18) budesonide (Verified Allergy, Unknown, 09/12/18) dapsone (Verified Allergy, Unknown, 09/12/18) formoterol (Verified Allergy, Unknown, 09/12/18) Patient Home Medication List Home Medication List Reviewed: Yes Cholecalciferol (Vitamin D3) (Vitamin D3) 1,000 Unit Capsule, 1,000 UNIT PO DAILY, (Reported) Entered as Reported by: ANJALI KRUGER on 09/12/18 1349 Estradiol (Estradiol Tablet) 0.5 Mg Tablet, 0.5 MG PO DAILY, (Reported) Entered as Reported by: ANJALI KRUGER on 09/12/18 1349 Fluticasone Propionate (Flonase Allergy Relief) 9.9 Ml [place].susp, 1 SPRAY NS DAILY, (Reported) Entered as Reported by: DALE MARADIAGA on 04/14/21 1327 Levothyroxine Sodium (Levothyroxine Sodium) 50 Mcg Tablet, 50 MCG PO DAILY, (Reported) Entered as Reported by: ANJALI KRUGER on 09/12/18 134 Liothyronine Sodium (Liothyronine Sodium) 5 Mcg Tablet, 5 MCG PO DAILY, (Reported) Entered as Reported by: ANJALI KRUGER on 09/12/181348 Magnesium Oxide (Magnesium) 500 Mg Capsule, 500 MG PO DAILY, (Reported) Entered as Reported by: ANJALI KRUGER on 09/12/181348 Metformin HCl (Metformin HCl) 500 Mg Tablet, 500 MG PO DAILY, (Reported) Entered as Reported by: ANJALI KRUGER on 09/12/181348 Multivitamin (Multivitamins) 1 Each Capsule, 1 EACH PO DAILY, (Reported) Entered as Reported by: ANJALI KRUGER on 09/12/181348 [place]-3 Fatty Acids/Fish Oil ([place] 3 1,000 mg Softgel) 1 Each Capsule, 1 EACH PO DAILY, (Reported) Entered as Reported by: ANJALI KRUGER on 09/12/181348 Triamterene/Hydrochlorothiazid (Triamterene-Hctz 37.5-25 mg Cp) 1 Each Capsule, 1 EACH PO DAILY, (Reported) Entered as Reported by: ANJALI KRUGER on 09/12/181348 Vit C/Vit E/Lutein/Min/[place]-3 (Ocuvite Softgel) 1 Each Capsule, 1 EACH PO DAILY, (Reported) Entered as Reported by: ANJALI KRUGER on 09/12/181348 Vitamin B Complex/Folic Acid (B-Complex Tablet) 0.4 Mg Tablet, 0.4 MG PO DAILY, (Reported) Entered as Reported by: ANJALI KRUGER on 09/12/181348 Review of Systems Review of Systems Constitutional: no symptoms reported Musculoskeletal: see HPI Skin: see HPI Past Xkmqydc-Nlkfzb-Lwemum Hx Patient Social History Tobacco Use?: No Substance use?: No Alcohol Use?: No Pt feels they are or have been: No Immunizations Up To Date Influenza Vaccine Up-to-Date: Yes; Up-to-Date First/Initial COVID19 Vaccinat: 09/2020 Second COVID19 Vaccination Jan: 10/2020 Third COVID19 Vaccination Date: 09/2020 Seasonal Allergies Seasonal Allergies: No Past Medical History Surgeries: Yes Eye Surgery, Hysterectomy, Orthopedic Respiratory: No Cardiac: No Neurological: No Reproductive Disorders: Yes (ENDOMETRIOSIS) Sexually Transmitted Disease: No Genitourinary: No Gastrointestinal: Yes (COLITIS 10 YRS AGO) Musculoskeletal: Yes (ARTHRITIS) Endocrine: No HEENT: No Cancer: No Psychosocial: Yes Depression Integumentary: No Blood Disorders: No Physical Exam Vital Signs Vital Signs - First Documented 11/12/22 16:02 Temp 36.7 Pulse 77 Resp 18 B/P (MAP) 162/79 (106) Pulse Ox 97 O2 Delivery Room Air Capillary Refill : Height, Weight, BMI Height: 5'2.50" Weight: 157lbs. 0.0oz. 71.849559ia; BMI Method: General Appearance: WD/WN, no apparent distress Extremities: other (Generalized bruising and edema of the right middle finger with tenderness in the mid finger. There is stiffness reducing range of motion and pain with range of motion. Distal capillary refill and sensation intact.) Neurologic/Psychiatric: alert, normal mood/affect, oriented x 3 Skin: warm/dry, ecchymosis Natasha Coma Score Best Eye Response: (4) Open Spontaneously Best Verbal Response: (5) Oriented Best Motor Response: (6) Obeys Commands Natasha Total: 15 Progress/Results/Core Measures Results/Orders My Orders Orders - NORMA MORSE MD Finger(S) (11/12/22 15:44) Vital Signs/I&O 11/12/22 16:02 Temp 36.7 Pulse 77 Resp 18 B/P (MAP) 162/79 (106) Pulse Ox 97 O2 Delivery Room Air Blood Pressure Mean: 106 Progress Progress Note : Progress Note X-rays were obtained and viewed by me. By my interpretation there were arthritic changes with significant osteophyte formation. However, no acute fractures or dislocations were appreciated. The radiologist's interpretation was also reviewed and report communicated similar findings. See report below. Patient was provided with altered work comp forms as she does not think she can adequately do her job with the condition of her right hand at this time. Diagnostic Imaging Diagonstic Imaging: Xray Plain Films/CT/US/NM/MRI: hand Comments NAME: GREGG COATES MED REC#: [id number] PT STATUS: REG ER : 1955 PHYSICIAN: NORMA MORSE MD ADMIT DATE: 11/12/22/ER Signed Date of Exam:11/12/22 FINGER(S) INDICATION: Right middle finger injury Three views of the right middle finger show osteoarthritic changes with large osteophytes forming at the PIP and DIP joints. There is no appreciable fracture or dislocation. IMPRESSION: Osteoarthritic changes of the right middle finger. No acute abnormality is seen. Dictated by: Dictated on workstation # [id number] Dict: 11/12/22 1557 Trans: 11/12/229 [facility] [id number] Interpreted by: LINDA SINGH MD Electronically signed by: LNIDA SINGH MD 11/12/229 Departure Impression Primary Impression: Fall on same level from tripping as cause of accidental injury Additional Impressions: Finger contusion Qualified Codes: S60.031D - Contusion of right middle finger without damage to nail, subsequent encounter Osteoarthritis, hand Qualified Codes: M19.041 - Primary osteoarthritis, right hand Disposition: 01 HOME, SELF-CARE Condition: Stable Departure-Patient Inst. Decision time for Depature: 16:27 Referrals: ALESSANDRO JOHANSEN MD (PCP) Primary Care Physician LITZY LEE APRN (Family) Primary Care Physician Patient Instructions: Contusion (DC) Add. Discharge Instructions: You may ice in 20-minute intervals and elevate. You may splint for comfort. Gradually increase level of activity as pain allows. Return to care if you have worsening symptoms despite following these instructions. All discharge instructions reviewed with patient and/or family. Voiced understanding. Copy Copies To 1: ALESSANDRO JOHANSEN MD, JOSHUA T MD Nov 12, 2022 16:28
== END 2022-11-12 16:36 | disposition home or self-care (01) ==
LOC: EDUNIT# 15:30 → ER 15:32
DX: S60.031A Contusion of right middle finger without damage to nail, initial encounter (principal); W01.0XXA Fall on same level from slipping, tripping and stumbling without subsequent striking against object, initial encounter; Y92.59 Other trade areas as the place of occurrence of the external cause; Y99.0 Civilian activity done for income or pay
CPT/HCPCS: 73140

== ENCOUNTER → 2023-01-03 | Outpatient (CLI) | payer OTHER ==
[2023-01-03 17:03] LABS: BASOPHILS # (AUTO) 0.1 10^3/uL (0.0-0.1); BASOPHILS % (AUTO) 1 % (0-10); EOSINOPHILS # (AUTO) 0.5 10^3/uL (0.0-0.3); EOSINOPHILS % (AUTO) 9 % (0-10); HEMATOCRIT 36 % (35-52); HEMOGLOBIN 12.1 g/dL (11.5-16.0); LYMPHOCYTES # (AUTO) 1.9 10^3/uL (1.0-4.0); LYMPHOCYTES % (AUTO) 34 % (12-44); MEAN CORPUSCULAR HEMOGLOBIN 33 pg (25-34); MEAN CORPUSCULAR HGB CONC 34 g/dL (32-36); MEAN CORPUSCULAR VOLUME 97 fL (80-99); MEAN PLATELET VOLUME 11.2 fL (9.0-12.2); MONOCYTES # (AUTO) 0.5 10^3/uL (0.0-1.0); MONOCYTES % (AUTO) 10 % (0-12); NEUTROPHILS # (AUTO) 2.5 10^3/uL (1.8-7.8); NEUTROPHILS % (AUTO) 46 % (42-75); PLATELET COUNT 249 10^3/uL (130-400); WHITE BLOOD COUNT 5.4 10^3/uL (4.3-11.0)
[2023-01-03 17:22] LABS: ALANINE AMINOTRANSFERASE 43 U/L (0-55); ALBUMIN 4.2 GM/DL (3.2-4.5); ALKALINE PHOSPHATASE 96 U/L (40-136); BILIRUBIN,TOTAL 0.3 MG/DL (0.1-1.0); BUN/CREATININE RATIO 14; CALCIUM 9.6 MG/DL (8.5-10.1); CARBON DIOXIDE 25 MMOL/L (21-32); CHLORIDE 104 MMOL/L (98-107); CREATINE KINASE 122 U/L (29-168); GFR ESTIMATED 70; GLUCOSE 95 MG/DL (70-105); POTASSIUM 3.7 MMOL/L (3.6-5.0); SODIUM 141 MMOL/L (135-145)
== END ==
LOC: CARD 16:35
PROVIDERS: ATTEND Nurse Practitioner Family
DX: R07.9 Chest pain, unspecified (principal)
CPT/HCPCS: 36415; 80053; 82550; 84484; 85025; 85379; 93005